=== PATIENT | male | born 1965 | race Caucasian/White ===

== ENCOUNTER → 2020-04-26 | Outpatient (CLI) | payer OTHER ==
[2020-04-27 14:02] LABS: Stool Occult Bld Immuno 1 Negative (NEGATIVE)
== END | disposition home or self-care (01) ==
LOC: LAB 06:10 → LAB SHORT 06:10
PROVIDERS: Student in an Organized Health Care Education/Training Program
DX: Z12.11 Encounter for screening for malignant neoplasm of colon (principal)
CPT/HCPCS: G0328

== ENCOUNTER → 2021-12-10 | Outpatient (CLI) | payer OTHER ==
[2021-12-11 23:08] LABS: CHLAMYDIA TRACHOMATIS, NAA Negative (Negative)
== END | disposition home or self-care (01) ==
LOC: LAB SHORT 10:55 → LAB EV 10:55
PROVIDERS: Physician Assistant
DX: N48.89 Other specified disorders of penis (principal)
CPT/HCPCS: 87491; 87591

== ENCOUNTER 2022-03-31 06:07 | Day surgery (SDC) | payer OTHER ==
[~2022-03-31] VITALS: Ht 175.3 cm; Wt 82.4 kg
[~2022-03-31 06:07] MED LIST: ATEN50 PO; ATOR20 PO; CLON.5 PO
--- NOTE | 2022-03-31 06:46 | NUR ---
Ambulatory in [facility] warming gown applied. History, Chart, Medications and Allergies reviewed before start of procedure.Lungs clear T/O to Auscultation. Patient confirms NPO status and agrees with scheduled surgery. Pre-Op teaching done. Pt verbalizes understanding. Patient States Post-Procedure ride home has been arranged. Patient reports completing Chlorhexadine shower X2 prior to admission to hospital.
--- NOTE | 2022-03-31 08:21 | NUR ---
PT FROM OR WHERE HE HAD A PROCEDURE WITH LOCAL ONLY. A&O X 4. DENIES N/V OR PAIN. DECLINES FOOD OR DRINK. DRESSING CDI.
--- NOTE | 2022-03-31 08:40 | NUR ---
D/C INSTRUCTIONS GIVEN W/VERBAL UNDERSTANDING. PT UP AMBULATED TO BR W/O ISSUES. IV D/C'D. PT AMBULATED OUT OF UNIT IN STABLE CONDITON. DRESSING CDI
== END 2022-03-31 23:15 | disposition home or self-care (01) ==
LOC: ORSCMMR 06:07 → ORD 07:30 → ORSCMMR 07:30
PROVIDERS: Surgery
PROC: 0JB70ZX Excision of Back Subcutaneous Tissue and Fascia, Open Approach, Diagnostic (ICD-10-PCS; principal; 2022-03-31 07:30)
DX: L72.0 Epidermal cyst (principal); E78.5 Hyperlipidemia, unspecified; I10 Essential (primary) hypertension; F41.0 Panic disorder [episodic paroxysmal anxiety]; Z79.899 Other long term (current) drug therapy
CPT/HCPCS: 88304; J0690; J2795; J7120

== ENCOUNTER → 2022-05-29 | Outpatient (CLI) | payer OTHER ==
[2022-06-02 13:24] LABS: Stool Occult Bld Immuno 1 Negative (NEGATIVE)
== END | disposition home or self-care (01) ==
LOC: LAB SHORT 12:00 → LAB 12:00
PROVIDERS: Student in an Organized Health Care Education/Training Program
DX: Z12.11 Encounter for screening for malignant neoplasm of colon (principal)
CPT/HCPCS: G0328